=== PATIENT | male | born 1965 | race Caucasian/White ===

== ENCOUNTER 2022-04-16 08:11 | Day surgery (SDC) | payer SELFPAY ==
[2022-04-15 12:06] LABS: BASOPHILS # (AUTO) 0.1 K/uL (0.00-0.22); BASOPHILS % (AUTO) 0.6 % (0.0-2.0); EOSINOPHILS # (AUTO) 0.2 K/uL (0-0.4); EOSINOPHILS % (AUTO) 1.9 % (0.0-4.0); HEMATOCRIT 45.8 % (36-52); HEMOGLOBIN 15.5 g/dL (12.0-18.0); LYMPHOCYTES # (AUTO) 2.8 K/uL (2.0-11.5); LYMPHOCYTES % (AUTO) 29.9 % (20.5-51.1); MEAN CORPUSCULAR HEMOGLOBIN 31 pg (27-31); MEAN CORPUSCULAR HGB CONC 34 g/dL (33-37); MEAN CORPUSCULAR VOLUME 90.4 fL (80-94); MONOCYTES # (AUTO) 0.6 K/uL (0.8-1.0); MONOCYTES % (AUTO) 5.9 % (1.7-9.3); NEUTROPHILS # (AUTO) 5.8 K/uL (1.8-7.7); NEUTROPHILS % (AUTO) 61.7 % (42.2-75.2); PLATELET COUNT (AUTO) 306 K/uL (140-450); RED BLOOD CELL COUNT(AUTO) 5.07 MIL/uL (4.20-6.10); RED CELL DISTRIBUTION WIDTH 13.4 % (11.6-13.7); WHITE BLOOD COUNT (AUTO) 9.4 K/uL (4.8-10.8)
[2022-04-15 12:18] LABS: ANION GAP 10.4 (8-16); CARBON DIOXIDE 28.6 mmol/L (21-32); TOTAL BILIRUBIN 0.5 mg/dL (0.0-1.0)
[~2022-04-16] VITALS: Ht 157.5 cm; Wt 96.2 kg
[2022-04-16] MEDS ORDERED: BUPIVACAINE-MPF 0.25% 30 ML VIAL INJ ONE (10:37)
[2022-04-16] MEDS ORDERED: LIDOCAINE/EPI 1% 1:100000 20 ML VIAL INJ ONE (10:38)
[2022-04-16] MEDS ORDERED: fentaNYL citrate 0.05 MG/ML VIAL ONE (10:59)
[2022-04-16] MEDS ORDERED: PROPOFOL 200 MG/20 ML VIAL IV ONE (11:00)
[2022-04-16] MEDS ORDERED: SEVOFLURANE 250 ML BTL INH ONE (11:05)
[2022-04-16] MEDS ORDERED: ePHEDrine 50 MG/ML VIAL ONE (11:25)
[2022-04-16] MEDS ORDERED: MEPERIDINE 50 MG/ML SYR ONE (11:29)
[2022-04-16] MEDS ORDERED: DEXAMETHASONE 4 MG/ML VIAL ONE (11:34)
[2022-04-16] MEDS ORDERED: ONDANSETRON 4 MG/2 ML VIAL ONE (11:34)
[2022-04-16] MEDS ORDERED: HYDROmorphone 1 MG/ML AMP IVP PRN ×2 (11:50→12:15)
[2022-04-16] MEDS ORDERED: ONDANSETRON 4 MG/2 ML VIAL IV PRN (11:50)
[2022-04-16] MEDS ORDERED: MORPHINE SULFATE 2 MG/ML SYR IVP PRN (11:50)
[2022-04-16] MEDS ORDERED: HYDROcodone/APAP 5/325 MG 1 TAB TAB PO PRN (11:50)
[2022-04-16] MEDS ORDERED: MORPHINE SULFATE 4 MG/ML SYR IV PRN (11:50)
[2022-04-16] MEDS ORDERED: ACET-8386 PO (11:54)
[2022-04-16] MEDS ORDERED: MEPERIDINE 25 MG/ML SYR IVP PRN (12:15)
[2022-04-16] MEDS ORDERED: ONDANSETRON 4 MG/2 ML VIAL IVP PRN (12:15)
[2022-04-16] MEDS ORDERED: LACTATED RINGERS 1,000 ML IV SCH (12:15)
[2022-04-16] MEDS ORDERED: diphenhydrAMINE 50 MG/ML VIAL IVP PRN (12:15)
== END 2022-04-16 13:25 | disposition home or self-care (01) ==
LOC: MMU 08:11 → MDS 08:11
PROVIDERS: ATTEND Surgery
DX: D17.1 Benign lipomatous neoplasm of skin and subcutaneous tissue of trunk (principal); E66.9 Obesity, unspecified; Z68.39 Body mass index [BMI] 39.0-39.9, adult; Z79.899 Other long term (current) drug therapy; Z20.822 Contact with and (suspected) exposure to COVID-19
CPT/HCPCS: 21931; 36415; 71045; 80053; 85025; 87426; J0690; J1100; J2001; J2175; J2405; J2704; J3010; J3490; J7060; 88307; 88313; 88342